=== PATIENT | female | born 1960 | race American Indian/Alaskan Native ===

== ENCOUNTER 2018-11-11 02:19 | Emergency (ER) | payer OTHER ==
[2018-11-11 02:31] VITALS: BP 153/80
[2018-11-11] MEDS ORDERED: NORCO 5/325 PO ONE (02:49)
[2018-11-11] MEDS ORDERED: NORCO 5/325 ONE (02:52)
--- NOTE | 2018-11-11 03:03 | Emergency Department Report ---
<MARY VAUGHN - Last Filed: 11/11/18 04:44> ED Upper Extremity Inj HPI - General Chief Complaint: Extremity Problem,Nontraumatic Stated Complaint: LEFT ARM PAIN Time Seen by Provider: 11/11/18 02:49 Source: patient Mode of arrival: Ambulatory Limitations: No Limitations - History of Present Illness Initial Comments: This is a 58-year-old -[place] female who presents with left hand swelling and pain for 2 days. Patient reports pain increases last night. She was unable to sleep. Past medical history of rheumatoid arthritis. She reports swelling and pain. Pain is constant aching sensation. She is currently taking methotrexate. Patient states her primary care Dr. Villagran at [facility] took her off all other medications. She denies any injury, fever, numbness. MD Complaint: Injury to:: left, hand Onset/Timin -: days(s) Other Extremity Injury: Hand: Left Other Injuries: none Handedness: right Place: home Severity scale (0 -10): 10 Improves With: none Worsens With: movement of extremity Associated Symptoms: denies other symptoms - Related Data Previous Rx's Medication Instructions Recorded Last Taken Type RX: traMADol [Ultram 50 MG tab] 50 mg PO Q6HR PRN #8 tablet 11/11/18 Unknown Rx methylPREDNISolone [Medrol] 4 mg PO DAILY #1 tab.ds.pk 11/11/18 Unknown Rx Allergies Allergy/AdvReac Type Severity Reaction Status Date / Time No Known Allergies Allergy Unverified 11/11/18 02:25 ED Review of Systems Constitutional: denies: chills, fever Respiratory: denies: cough, shortness of breath, wheezing Cardiovascular: denies: chest pain, palpitations Gastrointestinal: denies: abdominal pain, nausea, diarrhea Musculoskeletal: joint swelling (left hand), arthralgia (left hand). denies: back pain Skin: denies: rash, lesions Neurological: denies: headache, weakness, paresthesias Psychiatric: denies: anxiety, depression ED Past Medical Hx - Past Medical History Previous Medical History?: Yes Hx Diabetes: Yes (borderline) Hx Arthritis: Yes (rheumatoid) Additional medical history: brain tumor - Surgical History Past Surgical History?: Yes Additional Surgical History: brain - Social History Smoking Status: Never Smoker Substance Use Type: None - Medications Home Medications: Home Medications Medication Instructions Recorded Confirmed Last Taken Type RX: traMADol [Ultram 50 MG tab] 50 mg PO Q6HR PRN #8 tablet 11/11/18 Unknown Rx methylPREDNISolone [Medrol] 4 mg PO DAILY #1 tab.ds.pk 11/11/18 Unknown Rx ED Physical Exam - General Limitations: No Limitations General appearance: alert, in no apparent distress, obese - Respiratory Respiratory exam: Present: normal lung sounds bilaterally. Absent: respiratory distress - Cardiovascular Cardiovascular Exam: Present: regular rate, normal rhythm. Absent: systolic murmur, diastolic murmur, rubs, gallop - Expanded Upper Extremity Exam Left Shoulder Exam: Present: normal inspection, full ROM Upper Arm exam: Present: normal inspection, full ROM Elbow exam: Present: normal inspection, full ROM Forearm Wrist exam: Present: normal inspection, full ROM Hand Wrist exam: Present: swelling (swelling of the MCP's, no tenderness, 5/5 upper strength). Absent: full ROM (limited and painful ROM), tenderness, abrasion, laceration, ecchymosis, deformity, dislocation, erythema, amputation, nail avulsion, subungual hematoma Neuro motor exam: Present: wrist extension intact, thumb opposition intact, thumb IP flexion intact, thumb adduction intact, fingers 2-5 abduction intact Neurosensory exam: Present: radial nerve intact, ulnar nerve intact, median nerve intact Vascular: Present: normal capillary refill, radial pulse (+2). Absent: Pallo, pulse deficit radial art, pulse deficit ulnar art ED Medical Decision Making - Lab Data Result diagrams: 11/11/18 03:15 Lab Results 11/11/18 Range/Units 03:15 WBC 5.9 (4.5-11.0) K/mm3 RBC 4.38 (3.65-5.03) M/mm3 Hgb 12.7 (10.1-14.3) gm/dl Hct 38.9 (30.3-42.9) % MCV 89 (79-97) fl MCH 29 (28-32) pg MCHC 33 (30-34) % RDW 14.7 (13.2-15.2) % Plt Count 233 (140-440) K/mm3 Lymph % (Auto) 19.5 (13.4-35.0) % [place] % (Auto) 11.3 H (0.0-7.3) % Eos % (Auto) 3.1 (0.0-4.3) % Baso % (Auto) 0.8 (0.0-1.8) % Lymph # 1.1 L (1.2-5.4) K/mm3 [place] # 0.7 (0.0-0.8) K/mm3 Eos # 0.2 (0.0-0.4) K/mm3 Baso # 0.0 (0.0-0.1) K/mm3 Seg Neutrophils % 65.3 (40.0-70.0) % Seg Neutrophils # 3.9 (1.8-7.7) K/mm3 - Radiology Data Radiology results: report reviewed FINAL REPORT PROCEDURE: XR HAND 2V LT TECHNIQUE: LEFT hip radiographs, AP and lateral views. HISTORY: left hand pain and swelling COMPARISON: No prior studies are available for comparison. FINDINGS: Fracture (s) and/or Dislocation(s): None . Joint space(s): Normal . Soft tissues: Normal . Bone mineralization: Normal . Foreign bodies: None . IMPRESSION: Normal Examination. - Medical Decision Making Patient was examined by me. Vitals are normal and patient is in no acute distress. Obtained a CBC and x-ray of left hand. X-rays dictated by radiologist. CBC unremarkable and X-ray no acute findings. Rheumatoid arthritis flare. Start medrol dose pack. Instructed to follow up with PCP and rheumatology. Plan discussed with patient to discharge home and treat outpatient. Patient discharged home in stable condition. Follow up with PCP in 2-3 days. ED Disposition Clinical Impression: Left hand pain Disposition: - TO HOME OR SELFCARE Is pt being admited?: No Does the pt Need Aspirin: No Condition: Stable Instructions: Rheumatoid Arthritis (ED) Additional Instructions: Complete full course of Medrol Dosepak. 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 Prescriptions: methylPREDNISolone [Medrol] 4 mg PO DAILY #1 tab.ds.pk RX: traMADol [Ultram 50 MG tab] 50 mg PO Q6HR PRN #8 tablet PRN Reason: Pain Referrals: LAYA RING MD [Primary Care Provider] - 3-5 Days [facility] [Provider Group] - 3-5 Days Forms: Work/School Release Form(ED) Time of Disposition: 04:05 <JAYDE BAUTISTA - Last Filed: 11/11/18 05:47> ED Review of Systems ROS: Stated complaint: LEFT ARM PAIN Other details as noted in HPI ED Course Vital Signs 11/11/18 11/11/18 02:26 04:20 Temperature 98.3 F Pulse Rate 70 72 Respiratory 18 17 Rate Blood Pressure 153/80 O2 Sat by Pulse 100 100 Oximetry ED Medical Decision Making - Lab Data Result diagrams: 11/11/18 03:15 Critical care attestation.: If time is entered above; I have spent that time in minutes in the direct care of this critically ill patient, excluding procedure time.
[2018-11-11 03:23] LABS: Basophils % (Auto) 0.8 % (0.0-1.8); Eosinophils # (Auto) 0.2 K/mm3 (0.0-0.4); Eosinophils % (Auto) 3.1 % (0.0-4.3); Hematocrit 38.9 % (30.3-42.9); Hemoglobin 12.7 gm/dl (10.1-14.3); Lymphocytes # (Auto) 1.1 K/mm3 (1.2-5.4); Lymphocytes % (Auto) 19.5 % (13.4-35.0); Mean Corpuscular HGB Conc 33 % (30-34); Mean Corpuscular Volume 89 fl (79-97); Monocytes # (Auto) 0.7 K/mm3 (0.0-0.8); Monocytes % (Auto) 11.3 % (0.0-7.3); Platelet Count 233 K/mm3 (140-440); Red Blood Count 4.38 M/mm3 (3.65-5.03); Red Cell Distribution Width 14.7 % (13.2-15.2)
--- NOTE | 2018-11-11 03:55 | XRay Report ---
FINAL REPORT PROCEDURE: XR HAND 2V LT TECHNIQUE: LEFT hip radiographs, AP and lateral views. HISTORY: left hand pain and swelling COMPARISON: No prior studies are available for comparison. FINDINGS: Fracture (s) and/or Dislocation(s): None . Joint space(s): Normal . Soft tissues: Normal . Bone mineralization: Normal . Foreign bodies: None . IMPRESSION: Normal Examination.
== END 2018-11-11 04:20 | disposition home or self-care (01) ==
LOC: ED 02:19
DX: M10.042 Idiopathic gout, left hand (principal); E11.9 Type 2 diabetes mellitus without complications
CPT/HCPCS: 36415; 85025; 99284